=== PATIENT | female | born 1995 | race Caucasian/White ===

== ENCOUNTER 2017-12-12 13:34 | Emergency (ER) | payer OTHER ==
--- NOTE | 2017-12-12 15:04 | ER Document Report ---
ED Medical Screen (RME) - General Chief Complaint: Abdominal Pain Stated Complaint: ABDOMAINAL/BACK PAIN Time Seen by Provider: 12/12/17 15:02 Mode of Arrival: Ambulatory Information source: Patient Notes: This is a 22-year-old female 2 para 1 history of one miscarriage presents to the emergency room with vaginal bleeding and concerns for ectopic . Patient has a history of irregular bleeding and was placed on the Nexplanon and has not had bleeding for 4 months and now has had bleeding. She has had some cramping in the lower abdomen and is concerned about . She has taken home tests which have been negative. - HPI Onset: Just prior to arrival Onset/Duration: Gradual Quality of pain: Cramping, Dull Severity: Mild Associated Symptoms: denies: Chest pain, Nausea, Shortness of breath Exacerbated by: Denies Relieved by: Denies Similar symptoms previously: No Recently seen / treated by doctor: No - Related Data Smoking: Non-smoker Frequency of alcohol use: None Drug Abuse: None Allergies/Adverse Reactions: amoxicillin [From Augmentin] Allergy (Verified 12/12/17 15:03) clavulanic acid [From Augmentin] Allergy (Verified 12/12/17 15:03) Penicillins Allergy (Verified 12/12/17 15:03) sulfamethoxazole [From Bactrim] Allergy (Verified 12/12/17 15:03) trimethoprim [From Bactrim] Allergy (Verified 12/12/17 15:03) Past Medical History - General Information source: Patient - Social History Cigarette use (# per day): No Chew tobacco use (# tins/day): No Frequency of alcohol use: None Drug Abuse: None Lives with: Family Family history: None - Medical History Medical History: Negative Renal/ Medical History: Denies: Hx Peritoneal Dialysis Surgical Hx: Negative Review of Systems - Review of Systems Constitutional: denies: Chills, Fever EENT: No symptoms reported Cardiovascular: denies: Chest pain, Palpitations, Heart racing Respiratory: denies: Cough, Hemoptysis, Short of breath Gastrointestinal: Other. denies: Abdomen distended, Diarrhea, Vomiting - Abdominal cramping Genitourinary: No symptoms reported Female Genitourinary: Vaginal bleeding Musculoskeletal: No symptoms reported Skin: No symptoms reported Hematologic/Lymphatic: No symptoms reported Neurological/Psychological: No symptoms reported Physical Exam - Vital signs Vitals: Temp Pulse Resp BP Pulse Ox 98.6 F 70 16 116/60 99 12/12/17 13:49 12/12/17 13:49 12/12/17 13:49 12/12/17 13:49 12/12/17 13:49 Notes: Physical exam: GENERAL: 82-year-old female, alert and oriented 3, no acute distress HEAD: Atraumatic, normocephalic. EYES: Pupils equal round and reactive to light, extraocular movements intact, sclera anicteric, conjunctiva are normal. ENT: TMs normal, nares patent, oropharynx clear without exudates. Moist mucous membranes. NECK: Normal range of motion, supple without obvious mass or JVD. LUNGS: Breath sounds clear to auscultation bilaterally and equal. No wheezes rales or rhonchi. HEART: Regular rate and rhythm without murmurs, rubs or gallops. ABDOMEN: Soft, normoactive bowel sounds. No tenderness to palpation. No guarding, no rebound. No masses appreciated. EXTREMITIES: Normal range of motion, no pitting or edema. No clubbing or cyanosis. NEUROLOGICAL: Cranial nerves II through XII grossly intact. Normal speech, moving all extremities. PSYCH: Normal mood, normal affect. SKIN: Warm, Dry, normal turgor, no rashes or lesions noted. Course - Vital Signs Vital signs: Temp Pulse Resp BP Pulse Ox 98.6 F 70 16 116/60 99 12/12/17 13:49 12/12/17 13:49 12/12/17 13:49 12/12/17 13:49 12/12/17 13:49 Doctor's Discharge - Discharge Clinical Impression: Vaginal bleeding Condition: Stable Disposition: HOME, SELF-CARE Additional Instructions: As discussed, the blood test was negative. This is a highly sensitive test and confirms that you are not at this time. For the crampy discomfort: You could take some ibuprofen or Advil every 6 hours. I would follow-up with the sailor for the bleeding. Return to the ER if your pain significantly worsens, the bleeding worsens or any concerns or getting worse.
[2017-12-12 17:15] VITALS: BP 114/79
== END 2017-12-12 17:16 | disposition home or self-care (01) ==
LOC: ER 13:34
DX: N93.9 Abnormal uterine and vaginal bleeding, unspecified (principal); R10.30 Lower abdominal pain, unspecified; Z87.59 Personal history of other complications of pregnancy, childbirth and the puerperium; Z97.5 Presence of (intrauterine) contraceptive device; Z88.0 Allergy status to penicillin; Z88.1 Allergy status to other antibiotic agents
CPT/HCPCS: 36415; 84702; 99284

== ENCOUNTER 2019-02-02 13:16 | Emergency (ER) | payer OTHER ==
--- NOTE | 2019-02-02 13:49 | ER Document Report ---
ED Medical Screen (RME) - General Chief Complaint: Abdominal Pain Stated Complaint: ABDOMINAL CRAMPING Time Seen by Provider: 02/02/19 13:45 Primary Care Provider: LAW RIOS FNP-C [Primary Care Provider] - Follow up as needed - [facility] Notes: 02/02/19 13:48 Patient is a 23-year-old female no significant past medical history presents complaining of intermittent pelvic pain and irregular menstrual cycles for the past 3 months. She had a negative test this past week. Patient states that she had significant pain this morning which has since improved, but is still dull at this time. Pain does not radiate. She has had some urinary frequency. No fever. I have treated and performed a rapid initial assessment of this patient. A comprehensive ED assessment and evaluation of the patient, analysis of test results and completion of medical decision making process will be conducted by additional ED providers. PHYSICAL EXAMINATION: GENERAL: Well-appearing, well-nourished and in no acute distress. Abdomen: BS present. + tenderness lower abd b/l (difficult to assess adequately in triage) - Related Data Allergies/Adverse Reactions: amoxicillin [From Augmentin] Allergy (Verified 12/12/17 15:03) clavulanic acid [From Augmentin] Allergy (Verified 12/12/17 15:03) Penicillins Allergy (Verified 12/12/17 15:03) sulfamethoxazole [From Bactrim] Allergy (Verified 12/12/17 15:03) trimethoprim [From Bactrim] Allergy (Verified 12/12/17 15:03) Past Medical History - Social History Family history: None Renal/ Medical History: Denies: Hx Peritoneal Dialysis Past Surgical History: Reports: Hx Breast Surgery - left breast biopsy Physical Exam - Vital signs Vitals: Temp Pulse Resp BP Pulse Ox 98.2 F 76 18 136/78 H 98 02/02/19 13:21 02/02/19 13:21 02/02/19 13:21 02/02/19 13:21 02/02/19 13:21 Course - Vital Signs Vital signs: Temp Pulse Resp BP Pulse Ox 98.2 F 76 18 136/78 H 98 02/02/19 13:21 02/02/19 13:21 02/02/19 13:21 02/02/19 13:21 02/02/19 13:21 Doctor's Discharge - Discharge Referrals: LAW RIOS, [employer]-C [Primary Care Provider] - Follow up as needed
[2019-02-02 15:24] LABS: ABSOLUTE EOSINOPHILS # (AUTO) 0.1 10^3/uL (0.0-0.6); ABSOLUTE LYMPHOCYTES (AUTO) 2.3 10^3/uL (0.5-4.7); ABSOLUTE MONOCYTES (AUTO) 0.4 10^3/uL (0.1-1.4); BASOPHILS % (AUTO) 0.7 % (0-2); EOSINOPHILS % (AUTO) 2.1 % (0-6); HEMATOCRIT 43.3 % (36.0-47.0); HEMOGLOBIN 14.9 g/dL (12.0-15.5); MEAN CORPUSCULAR HEMOGLOBIN 28.9 pg (27.0-33.4); MEAN CORPUSCULAR HGB CONC 34.5 g/dL (32.0-36.0); MEAN CORPUSCULAR VOLUME 84 fl (80-97); MONOCYTES % (AUTO) 5.9 % (3-13); PLATELET COUNT 253 10^3/uL (150-450); RED BLOOD COUNT 5.16 10^6/uL (3.72-5.28); RED CELL DISTRIBUTION WIDTH 12.9 % (11.5-14.0); SEGMENTED NEUTROPHILS % (AUTO) 58.3 % (42-78); TOTAL CELLS COUNTED % (AUTO) 100 %; WHITE BLOOD COUNT 6.9 10^3/uL (4.0-10.5)
[2019-02-02 15:36] LABS: ALBUMIN 4.5 g/dL (3.5-5.0); ALKALINE PHOSPHATASE 76 U/L (38-126); ANION GAP 8 (5-19); ASPARTATE AMINO TRANSFERASE 20 U/L (14-36); BILIRUBIN,DIRECT 0.1 mg/dL (0.0-0.4); BILIRUBIN,TOTAL 0.5 mg/dL (0.2-1.3); BLOOD UREA NITROGEN 12 mg/dL (7-20); CALCIUM 9.9 mg/dL (8.4-10.2); CARBON DIOXIDE 29 mmol/L (22-30); CHLORIDE 102 mmol/L (98-107); GLUCOSE 97 mg/dL (75-110); POTASSIUM 4.4 mmol/L (3.6-5.0); TOTAL PROTEIN 7.9 g/dL (6.3-8.2)
--- NOTE | 2019-02-02 16:05 | RADIOLOGY REPORT (SQ) ---
EXAM DESCRIPTION: U/S NON OB PEL TV W/DOPPLER COMPLETED DATE/TIME: 02/02/2019 3:55 pm REASON FOR STUDY: pelvic pain COMPARISON: None. TECHNIQUE: Dynamic and static grayscale images acquired of the pelvis via transvaginal approach and recorded on PACS. Additional selected color Doppler and spectral images recorded. LIMITATIONS: None. FINDINGS: UTERUS: Contour normal. No mass. ENDOMETRIAL STRIPE: No focal or generalized thickening. No masses. CERVIX: No nabothian cysts. RIGHT OVARY AND DOPPLER: Normal size. No worrisome masses. Normal arterial vascular flow without evid ence for torsion. Dominant follicle noted. LEFT OVARY AND DOPPLER: Normal size. No worrisome masses. Normal arterial vascular flow without evide nce for torsion. FREE FLUID: None noted. OTHER: No other significant finding. MEASUREMENTS: UTERUS: 8.6 x 5.0 x 4.2 cm ENDOMETRIAL STRIPE: 6.7 mm RIGHT OVARY: 3.2 x 2.7 x 2.1 cm LEFT OVARY: 2.7 x 1.6 x 1.8 cm IMPRESSION: NORMAL TRANSVAGINAL PELVIC ULTRASOUND. TECHNICAL DOCUMENTATION: JOB ID: [id number]- All Rights Reserved Rev Reading location - IP/workstation name: [email or web address]
--- NOTE | 2019-02-02 16:22 | ER Document Report ---
ED General - General Chief Complaint: Pelvic Pain Stated Complaint: ABDOMINAL CRAMPING Time Seen by Provider: 02/02/19 13:45 Primary Care Provider: LAW RIOS FNP-C [NURSE PRACTITIONER] - Follow up in 1 week Notes: 23-year-old female presents to the emergency department with reports of pelvic pain for the past 3 months. She reports G3, P1. She reports she has had 2 miscarriages. She reports for the last 3 months she is had very light menses and her last period lasted only 2 days. She reports it felt like she was like she was the first time. She did do some home test and they were negative. She has been to her primary care provider and the emergency department on [place] for these symptoms. She denies pain with voiding. Denies vaginal discharge. Denies fever vomiting diarrhea. Reports only one sexual partner her . Patient reports her had a va sectomy. TRAVEL OUTSIDE OF THE [place] IN LAST 30 DAYS: No - HPI Onset: Other - 3 months Quality of pain: Cramping Associated symptoms: None Exacerbated by: Denies Relieved by: Denies Similar symptoms previously: Yes Recently seen / treated by doctor: Yes - Related Data Allergies/Adverse Reactions: amoxicillin [From Augmentin] Allergy (Verified 12/12/17 15:03) clavulanic acid [From Augmentin] Allergy (Verified 12/12/17 15:03) Penicillins Allergy (Verified 12/12/17 15:03) sulfamethoxazole [From Bactrim] Allergy (Verified 12/12/17 15:03) trimethoprim [From Bactrim] Allergy (Verified 12/12/17 15:03) Past Medical History - General Information source: Patient Last Menstrual Period: jan 27 & - Social History Smoking Status: Never Smoker Chew tobacco use (# tins/day): No Frequency of alcohol use: Occasional Drug Abuse: None Lives with: Family Family History: None Patient has suicidal ideation: No Patient has homicidal ideation: No - Medical History Medical History: Negative Renal/ Medical History: Denies: Hx Peritoneal Dialysis Past Surgical History: Reports: Hx Breast Surgery - left breast biopsy Review of Systems - Review of Systems Notes: Review HPI for review of systems., All other systems negative Physical Exam - Vital signs Vitals: Temp Pulse Resp BP Pulse Ox 98.2 F 76 18 136/78 H 98 02/02/19 13:21 02/02/19 13:21 02/02/19 13:21 02/02/19 13:21 02/02/19 13:21 - Notes Notes: PHYSICAL EXAMINATION: GENERAL: Well-appearing and in no acute distress HEAD: Atraumatic, normocephalic. EYES: extraocular movements intact, sclera anicteric, conjunctiva are normal. ENT: nares patent, . Moist mucous membranes. NECK: Normal range of motion, supple without lymphadenopathy LUNGS: Respiratory rate even nonlabored HEART: Regular rate ABDOMEN: Soft, no tenderness. No guarding, no rebound EXTREMITIES: Normal range of motion, no pitting edema. No cyanosis. NEUROLOGICAL: Cranial nerves grossly intact. . PSYCH: Normal mood, normal affect. SKIN: Warm, Dry, normal turgor, no rashes or lesions noted - Genitourinary External exam: Normal Speculum exam: Vaginal discharge Vaginal bleeding: None Bimanuel exam: Normal Course - Re-evaluation Re-evalutation: 02/02/19 16:23 23-year-old female presents emergency department with complaints of lower abdominal, pelvic cramps around the time she has her menses. She has been evaluated by her primary care provider and another emergency department. Denies fever vomiting diarrhea. Denies pain with void. Denies STD exposure. Reports only one sexual partner and they do not use protection. 02/02/19 16:24 Transvaginal US 02/02/19 13:49 IMPRESSION: NORMAL TRANSVAGINAL PELVIC ULTRASOUND. 02/02/19 17:15 wet mount neg. UA with leukocytes, other labs unremarkable. Ultrasound unremarkable. Patient is not worried about an STD. She will be discharged with treatment for UTI. She will be notified should STD cultures returned positive. She was instructed on all results. 02/02/19 15:00 02/02/19 15:00 MCV 84 fl (80-97) 02/02/19 15:00 MCH 28.9 pg (27.0-33.4) 02/02/19 15:00 MCHC 34.5 g/dL (32.0-36.0) 02/02/19 15:00 RDW 12.9 % (11.5-14.0) 02/02/19 15:00 Seg Neutrophils % 58.3 % (42-78) 02/02/19 15:00 Chloride 102 mmol/L (98-107) 02/02/19 15:00 Carbon Dioxide 29 mmol/L (22-30) 02/02/19 15:00 Anion Gap 8 (5-19) 02/02/19 15:00 Est GFR ( Amer) > 60 (>60) 02/02/19 15:00 Glucose 97 mg/dL (75-110) 02/02/19 15:00 Calcium 9.9 mg/dL (8.4-10.2) 02/02/19 15:00 Total Bilirubin 0.5 mg/dL (0.2-1.3) 02/02/19 15:00 AST 20 U/L (14-36) 02/02/19 15:00 Alkaline Phosphatase 76 U/L (38-126) 02/02/19 15:00 Total Protein 7.9 g/dL (6.3-8.2) 02/02/19 15:00 Albumin 4.5 g/dL (3.5-5.0) 02/02/19 15:00 Serum HCG, Qual NEGATIVE (NEGATIVE) 02/02/19 15:00 Urine Color YELLOW 02/02/19 14:00 Urine Appearance TURBID 02/02/19 14:00 Urine pH 5.0 (5.0-9.0) 02/02/19 14:00 Ur Specific [place] 1.027 02/02/19 14:00 Urine Protein NEGATIVE mg/dL (NEGATIVE) 02/02/19 14:00 Urine Glucose (UA) NEGATIVE mg/dL (NEGATIVE) 02/02/19 14:00 Urine Ketones NEGATIVE mg/dL (NEGATIVE) 02/02/19 14:00 Urine Blood NEGATIVE (NEGATIVE) 02/02/19 14:00 Urine RBC (Auto) 1 /HPF 02/02/19 14:00 - Vital Signs Vital signs: Temp Pulse Resp BP Pulse Ox 98.0 F 74 18 106/70 98 02/02/19 17:25 02/02/19 17:25 02/02/19 13:21 02/02/19 17:25 02/02/19 17:25 - Laboratory Result Diagrams: 02/02/19 15:00 02/02/19 15:00 Laboratory results interpreted by me: 02/02/19 14:00 Urine Urobilinogen 2.0 H Leukocyte Esterase Rfl MODERATE H - Diagnostic Test Radiology reviewed: Image reviewed, Reports reviewed Procedures - Pelvic Exam Pelvic exam Time completed: 16:23 Cultures obtained: Yes Wet prep obtained: Yes Herpes culture obtained: No POC sent to lab: No Foreign body removed: No Bimanual exam performed: Yes Witnessed by: Yumiko ROALND Discharge - Discharge Clinical Impression: Abdominal pain, UTI (urinary tract infection) Condition: Stable Disposition: HOME, SELF-CARE Instructions: Abdominal Pain ([facility]), Nitrofurantoin ([facility]), Pelvic Pain ([facility]), Urinary Tract Infection ([facility]) Additional Instructions: *You have been evaluated for abdominal pain, uti *Take medication as prescribed *STD cultures are pending. You will be contacted if you need to return to the emergency department for treatment *Take ibuprofen as indicated for abdominal pain *Follow up with a primary care provider within one week for recheck *Return to ED for worsening condition, changes, needs *Return to ED if not better in 24 hours Monitor your blood pressure. Your blood pressure was elevated today. This may be because you were anxious, in pain or because you need medication. It is important to follow up with your primary care provider for full evaluation. Prescriptions: Nitrofurantoin/Nitrofuran Mac [Macrobid 100 mg Capsule] 100 mg PO BID #20 capsule Forms: Elevated Blood Pressure Referrals: LAW RIOS FNP-C [NURSE PRACTITIONER] - Follow up in 1 week
[2019-02-02 16:32] LABS: RBCS (WET MOUNT) RARE RBCS SEEN; T.VAGINALIS (WET MOUNT) NO TRICHOMONAS SEEN; WBCS (WET MOUNT) FEW WBCS SEEN; YEAST (WET MOUNT) NO YEAST SEEN
[2019-02-02 16:45] LABS: APPEARANCE,URINE TURBID; BILIRUBIN,URINE NEGATIVE (NEGATIVE); COLOR,URINE YELLOW; GLUCOSE, URINE NEGATIVE (NEGATIVE); KETONES,URINE NEGATIVE (NEGATIVE); PROTEIN,URINE NEGATIVE (NEGATIVE); URINE SPECIFIC GRAVITY 1.027
[2019-02-02 17:29] VITALS: BP 106/70
[2019-02-02 17:53] LABS: CHLAM PCR NOT DETECTED (NOT DETECT)
== END 2019-02-02 17:28 | disposition home or self-care (01) ==
LOC: ER 13:16
DX: N39.0 Urinary tract infection, site not specified (principal); R10.9 Unspecified abdominal pain; R10.2 Pelvic and perineal pain; Z88.0 Allergy status to penicillin; Z88.3 Allergy status to other anti-infective agents
CPT/HCPCS: 36415; 76830; 80053; 81001; 84703; 85025; 87086; 87210; 87491; 87591; 93976; 99284